=== PATIENT | male | born 1945 | race Caucasian/White ===

== ENCOUNTER → 2023-04-17 10:36 | Outpatient (REF) | payer MEDICARE, SELFPAY ==
[2023-04-17 11:34] LABS: % Basophils 1.1 % (0-2); % Eosinophils 4.9 % (0-6); % Immature Granulocytes 0.4 % (0-0.5); % Lymphocytes 27.2 % (20.5-51.1); % Monocytes 8.6 % (1.7-9.3); % Neutrophils 57.8 % (42.2-75.2); Absolute Basophils 0.1 10^3/uL (0-0.2); Absolute Eosinophils 0.4 10^3/uL (0-0.7); Absolute Monocytes 0.6 10^3/uL (0.1-0.6); Absolute Neutrophils 4.2 10^3/uL (1.4-6.5); Hematocrit 42.7 % (39.0-52.0); Hemoglobin 14.9 g/dL (13.0-18.0); Mean Corp Hgb Conc. 34.9 g/dL (33.0-37.0); Mean Corpuscular Hgb 34.1 pg (27.0-31.0); Mean Corpuscular Volume 97.7 fL (80.0-94.0); Mean Platelet Volume 9.5 fL (7.4-10.4); Nucleated Red Blood Cells % 0 % (-); Platelet Count 179 10^3/uL (130-400); Red Blood Cell Count 4.37 10^6/uL (4.70-6.10); Red Cell Dist. Width 12.8 % (11.5-14.5); White Blood Cell Count 7.3 10^3/uL (4.8-10.8)
[2023-04-17 12:01] LABS: ALT (SGPT) 10 U/L (0-50); AST (SGOT) 22 U/L (17-59); Alkaline Phosphatase 43 U/L (38-126); Blood Urea Nitrogen 17 mg/dl (9-20); Carbon Dioxide 28 mmol/L (22-30); Chloride 105 mmol/L (98-107); Glucose 99 mg/dl (70-99); HDL Cholesterol 48 mg/dl; LDL Cholesterol, Calculated 68 mg/dl; Potassium 4.2 mmol/L (3.5-5.1); Sodium 137 mmol/L (135-145); Total Bilirubin 0.9 mg/dl (0.2-1.3); Total Cholesterol 131 mg/dl (50-199); Total Protein 6.3 g/dl (6.3-8.2); Triglyceride 77 mg/dl (10-149); Very Low Density Lipoprotein 15 mg/dl (0-30); eGFR > 60.00
[2023-04-17 12:36] LABS: TSH 2.15 uIU/ml (0.47-4.68)
== END ==
LOC: REG 10:36
PROVIDERS: ATTENDING PHYSICIAN Internal Medicine
DX: I10 Essential (primary) hypertension (principal); N40.1 Benign prostatic hyperplasia with lower urinary tract symptoms; I44.7 Left bundle-branch block, unspecified; Z85.038 Personal history of other malignant neoplasm of large intestine; Z86.12 Personal history of poliomyelitis; I87.2 Venous insufficiency (chronic) (peripheral); G62.9 Polyneuropathy, unspecified; K58.0 Irritable bowel syndrome with diarrhea; Z00.01 Encounter for general adult medical examination with abnormal findings
CPT/HCPCS: 36415; 80053; 80061; 84443; 85025

== ENCOUNTER → 2023-04-30 14:05 | Outpatient (REF) | payer MEDICARE, SELFPAY ==
[2023-04-30 16:11] LABS: Urine Albumin Trace (Neg - Trace); Urine Bilirubin Negative (Negative); Urine Character Clear (Clear); Urine Color Amber; Urine Glucose Negative (Negative); Urine Ketone Trace (Negative); Urine Leukocyte Trace (Negative); Urine Nitrite Negative (Negative); Urine Occult Blood 4+ (Negative); Urine Urobilinogen Negative (Neg - 1+)
[2023-04-30 16:36] LABS: Urine Mucus Few
[2023-04-30 16:37] LABS: Urine Calcium Oxalate Crystals Present; Urine Red Blood Cell 90-100 /HPF (0-2); Urine Squamous Cell 0-2 /LPF (Few)
[2023-04-30 16:38] LABS: Urine Bacteria Few (Negative)
== END ==
LOC: REG 14:05
PROVIDERS: ATTENDING PHYSICIAN Specialist; FAMILY PHYSICIAN Internal Medicine
DX: N39.0 Urinary tract infection, site not specified (principal)
CPT/HCPCS: 81003; 81015; 87086

== ENCOUNTER → 2023-06-16 16:15 | Outpatient (REF) | payer MEDICARE, SELFPAY | LOC: RAD 16:15 | PROVIDERS: ATTENDING PHYSICIAN Student in an Organized Health Care Education/Training Program | DX: R22.2 Localized swelling, mass and lump, trunk (principal) | CPT/HCPCS: 71111 ==

== ENCOUNTER 2023-09-09 06:16 | Day surgery (SDC) | payer MEDICARE, SELFPAY ==
[2023-09-03 09:09] VITALS: BMI 27.4
[2023-09-03 10:12] LABS: Urine Albumin Negative (Neg - Trace); Urine Bilirubin Negative (Negative); Urine Character Clear (Clear); Urine Color Yellow; Urine Glucose Negative (Negative); Urine Ketone Negative (Negative); Urine Leukocyte 1+ (Negative); Urine Nitrite Negative (Negative); Urine Occult Blood 1+ (Negative); Urine Specific Gravity 1.015 (<1.030); Urine Urobilinogen Negative (Neg - 1+)
[2023-09-03 10:17] LABS: Hematocrit 45.7 % (39.0-52.0); Hemoglobin 15.5 g/dL (13.0-18.0); Mean Corp Hgb Conc. 33.9 g/dL (33.0-37.0); Mean Corpuscular Hgb 33.3 pg (27.0-31.0); Mean Corpuscular Volume 98.3 fL (80.0-94.0); Mean Platelet Volume 9.7 fL (7.4-10.4); Platelet Count 175 10^3/uL (130-400); Red Blood Cell Count 4.65 10^6/uL (4.70-6.10); Red Cell Dist. Width 12.9 % (11.5-14.5); White Blood Cell Count 9.1 10^3/uL (4.8-10.8)
[2023-09-03 10:21] LABS: APTT 31.1 Sec (23.4-35.0); INR 1.11; PT 14.3 Sec (11.4-14.6)
[2023-09-03 10:44] LABS: Blood Urea Nitrogen 18 mg/dl (9-20); Calcium 9.8 mg/dl (8.4-10.2); Carbon Dioxide 22 mmol/L (22-30); Chloride 105 mmol/L (98-107); Estimated Creatinine Clearance 80 ml/min; Glucose 93 mg/dl (70-99); Potassium 4.4 mmol/L (3.5-5.1); Sodium 137 mmol/L (135-145); eGFR > 60.00
[2023-09-03 10:52] LABS: Urine Squamous Cell 0-2 /LPF (Few)
[2023-09-03 10:54] LABS: Urine Red Blood Cell 0-2 /HPF (0-2); Urine Urothelial Cell 0-2 /LPF (FEW)
--- NOTE | 2023-09-07 12:10 | CM ---
Patient is scheduled for a TURP on 09/09/23. Spoke with patient prior to surgery via telephone to complete case management assessment and assess for discharge planning needs. Patient reports that he lives alone in a one story home. There is one step
to enter. He currently functions independently. He has no DME and has never had VN services. He has a prescription plan and uses [facility] in [place].
PCP is Amadeo Hensley
Discussed discharge plans. Patient plans to return home at discharge. He states that he will not have anyone staying with him when he goes home. He has no discharge planning concerns at this time. Discussed possible need for VN services and he
declined, stating he doesn't feel he will need these services.
[2023-09-09] VITALS (15 sets, daily range): BP systolic 118–155; BP diastolic 64–90; BMI 26.5; BMI 27.4
[2023-09-09] MEDS: NORMOSOL-R 1000 IV (09:02)
[2023-09-09] MEDS: COREG 6.25 MG PO (14:34)
--- NOTE | 2023-09-09 15:43 | PTCARENOTE ---
1520: Patient arrived to 2S post TURP and cystolitholipaxy. Full head to toe assessment completed. CBI running with a light red output, free of clots. Call wallace within reach and bed in lowest position.
[2023-09-09] MEDS: NON-FORMULARY ITEM 1 DROP OPHTH (21:16)
[2023-09-09] MEDS: PRED FORTE 1% EYE DROPS 1 DROP OPHTH (21:17)
[2023-09-09] MEDS: BENADRYL 25 MG PO (22:00)
[2023-09-09] MEDS: PROSCAR 5 MG PO (22:00)
[2023-09-09] MEDS: DESYREL 50 MG PO (22:00)
[2023-09-10] MEDS: COREG 6.25 MG PO ×2 (02:37→16:23)
[2023-09-10 03:50] VITALS: BP 120/64
[2023-09-10 07:10] VITALS: BP 137/72
[2023-09-10] MEDS: FLOMAX 0.4 MG PO (09:24)
[2023-09-10] MEDS: ZESTRIL 20 MG PO (09:24)
[2023-09-10] MEDS: PRED FORTE 1% EYE DROPS 1 DROP OPHTH ×3 (09:25→22:04)
[2023-09-10] MEDS: NON-FORMULARY ITEM OPHTH ×2 (09:26→16:23)
--- NOTE | 2023-09-10 10:31 | W.PN.UPDATE ---
Update Note
Progress Note Update
pt s/p TURP
saw pt this am- moderate rate cbi- urine clear
clamped cbi- pt uoob/ambulating- urine became bloody with some clots
have restarted cbi- continue today- and try repeat clamp trial- TOV tomorrow
[2023-09-10 11:42] VITALS: BP 132/68
[2023-09-10 15:36] VITALS: BP 136/63
[2023-09-10] MEDS: DESYREL 50 MG PO (22:04)
[2023-09-10] MEDS: PROSCAR 5 MG PO (22:04)
[2023-09-10] MEDS: BENADRYL 25 MG PO (22:04)
[2023-09-10] MEDS: NON-FORMULARY ITEM 1 DROP OPHTH (22:12)
[2023-09-10 23:05] VITALS: BP 128/64
--- NOTE | 2023-09-11 06:36 | W.PN.UPDATE ---
Update Note
Progress Note Update
pt stable
urine clear/blair with cbi off since midnight
palacio removed for TOV- likely discharge home later today
[2023-09-11 07:20] VITALS: BP 144/88
[2023-09-11] MEDS: FLOMAX 0.4 MG PO (08:11)
[2023-09-11] MEDS: ZESTRIL 20 MG PO (08:12)
[2023-09-11] MEDS: PRED FORTE 1% EYE DROPS 1 DROP OPHTH (08:13)
[2023-09-11] MEDS: NON-FORMULARY ITEM 1 DROP OPHTH (08:46)
[2023-09-11] MEDS: COREG 6.25 MG PO (10:28)
[2023-09-11 15:00] VITALS: BP 137/78
--- NOTE | 2023-09-11 15:57 | VNURNOTE ---
Home Health Liaison called to speak with patient at 1345 to discuss [facility] nurse visits, schedule and homebound status. No answer, message left for patient to contact Liaison if he would want or need [facility] at discharge.
Notes indicate that patient has had palacio d/c and patient does not need [facility].
No referral made.
[2023-09-13 10:56] LABS: Stone Analysis Mass 957 mg
== END 2023-09-11 15:10 | disposition home or self-care (01) ==
LOC: SDS 06:16
PROVIDERS: ATTENDING PHYSICIAN Specialist; FAMILY PHYSICIAN Internal Medicine
DX: N40.1 Benign prostatic hyperplasia with lower urinary tract symptoms (principal); N32.0 Bladder-neck obstruction
CPT/HCPCS: 52601; 52317; 88305; 36415; 80048; 81003; 81015; 82365; 85027; 85610; 85730; 88344; 93005

== ENCOUNTER 2023-12-11 18:47 | Emergency (ER) | payer MEDICARE, SELFPAY ==
[2023-12-11 18:58] VITALS: BP 169/88
--- NOTE | 2023-12-11 20:58 | ED.GENMED ---
History of Present Illness
General
Chief Complaint: Breathing Problem
Source: patient
Time Seen by Provider: 12/11/23 20:38
History of Present Illness
History of Present Illness:
78-year-old male presents to the emergency room complaining of pain in the right upper abdomen. Pain began 2 days ago. It is persistent. Made worse with deep breaths. No associated nausea vomiting. Patient does not feel short of breath.
Patient had similar episodes of pain a couple times throughout his life. He called his primary care doctor who told him to come to the emergency room for evaluation to rule out a lung problem. Patient denies any fever, chills or diarrhea. He
cannot recall any particular activity which started the pain.
Past History
Past History
ED Past Medical History: Arrthythmia (PVC's), HTN, Other (Large prostate) and Other (Hx colon cancer)
ED Past Surgical History: Orthopedic and Other (Colon resection 2007)
Social History
Tobacco: Non-smoker
Personal: Single
Living: alone
Phy Exam
Physical Exam
Physical Exam:
General: Awake, Alert, Oriented X3. No acute distress.
Vitals: unremarkable
Head: Atraumatic
Eyes: Pupils equal, EOMI
Throat: Airway intact, no exudates
Neck: Trachea midline
Lungs: Clear and equal b/l
Heart: Regular rate, no murmurs
Abd: Soft, mild to moderate right upper quadrant tenderness to palpation, No pulsatile mass
Neuro: Nonfocal
Skin: Warm, dry, no rash
Extremities: pulses equal b/l, no edema
Scores
Heart Failure Risk
Heart Failure Risk Score: Not Applicable
Course
Orders/Labs/Results
Orders:
Orders
12/11/23 18:49
EKG [Electrocardiogram (*1)] Urgent
Reason for Study: Shortness of Breath
EKG- Treatment ONCE
12/11/23 19:00
Chest [CR Chest - 2 Views ] Urgent
Comment:
Reason For Exam: R sided chest discomfort
12/11/23 20:57
Ketorolac [Toradol] 15 mg IV NOW STA
12/11/23 20:58
US Abdomen Complete/Upper Urgent
Comment:
Reason For Exam: ruq pain
12/11/23 22:41
Complete Blood Count/With Diff Urgent
Comprehensive Metabolic Panel Urgent
Lipase Urgent
Abnormal Lab Results
12/11/23
22:41
WBC 11.0 H 10^3/uL
(4.8-10.8)
RBC 4.44 L 10^6/uL
(4.70-6.10)
MCH 34.0 H pg
(27.0-31.0)
Abs Immat Gran (auto) 0.1 H 10^3/uL
(0-0.05)
Absolute Neuts (auto) 7.8 H 10^3/uL
(1.4-6.5)
Absolute Monos (auto) 1.1 H 10^3/uL
(0.1-0.6)
Immature Gran % 0.6 H %
(0-0.5)
Lymphocytes % 16.8 L %
(20.5-51.1)
Monocytes % 9.9 H %
(1.7-9.3)
Glucose 103 H mg/dl
(70-99)
Total Bilirubin 1.6 H mg/dl
(0.2-1.3)
12/11/23 22:41
12/11/23 22:41
Vital Signs
Initial and Last Documented VS:
Initial Vital Signs
Temp Pulse Resp BP Pulse Ox
98.1 F 81 18 169/88 96
12/11/23 18:58 12/11/23 18:58 12/11/23 18:58 12/11/23 18:58 12/11/23 18:58
Last Documented Vital Signs
Temp Pulse Resp BP Pulse Ox
98.1 F 80 24 156/86 93
12/11/23 18:58 12/11/23 23:45 12/11/23 23:45 12/11/23 23:30 12/11/23 23:45
MDM/Problems Addressed
Differential Diagnosis Includes:
Pancreatitis, cholecystitis, GERD, peptic ulcer disease
MDM/Problems Addressed:
Patient presents with right upper quadrant and epigastric abdominal pain. He was concerned that he had a collapsed lung however on exam his pain is clearly abdominal. Chest x-ray shows no acute abnormality. Labs show an elevated white count at 11
which is barely elevated. He has normal chemistries save a bilirubin of 1.6. His ultrasound shows multiple gallstones. There is no gallbladder wall thickening or pericholecystic fluid. EKG shows no ischemic changes. My #1 suspicion is that the
patient is having biliary colic due to his gallstones. He is feeling better and therefore we discussed the option of hospitalization versus discharge home and follow-up with surgery as an outpatient. Patient would prefer outpatient follow-up. He
understands return to the pain returns, he develops a fever or feels he is getting worse in any way.
*Radiology
Radiology exam reviewed: radiology read reviewed
*Pulse Oximetry
Patient hypoxic: no
*EKG
Interpreted by ED Provider?: Yes
Interpretation: normal
Heart Rate: 76
Rate: normal
Rhythm: sinus
QRS Pattern: left bundle branch block
Ischemia: no ischemia
*Audio Technician Interpretation
Rate: normal
Heart Rate: 76
Rhythm: sinus
*Critical Care Note
Total Time (30-74mins, 75-104mins- exclusive of procedures): Not Applicable
Data Reviewed
Review of Other/Old Records Reveals: Records
Patient Management
Escalation/DeEscalation of care consider admission/obs:
Considered hospitalization given the patient is feeling better he would prefer to be discharged home and have outpatient follow-up
ED Attending Note
-
Portions of this chart may have been created with voice recognition software.� Occasional wrong word or��sound alike� substitutions may have occurred due to the inherent limitations of voice recognition software.
Discharge Plan
Departure
Patient Disposition: Home (Routine Discharge)
Date of Disposition: 12/11/23
Time of Disposition: 23:31
Patient with high blood pressure during this ER visit?: Yes
Condition: Good
Discharge Problem:
Abdominal pain, Gall stones
Instructions: Gallstones ED, BLOOD PRESSURE
Prescriptions:
No Action
acetaminophen 650 mg Tablet Extended Release
1,300 mg PO PRN PRN (Reason: PAIN) Qty: 0
carvedilol 6.25 MG tablet
6.25 mg PO Q12H
trazodone 50 MG tablet
50 mg PO HS
tamsulosin 0.4 MG capsule
0.4 mg PO DAILY Qty: 30 0RF
loperamide 2 mg Tablet
2 mg PO PRN PRN (Reason: diarrhea)
acetaminophen 500 mg Tablet
500 mg PO Q6H PRN (Reason: PAIN)
diphenhydramine HCl 25 mg Tablet
25 mg PO HS
finasteride 5 mg Tablet
5 mg PO HS
gatifloxacin 0.5 % Drops
1 drp OPHTHALMIC (EYE) TID
prednisolone acetate (PF) 1 % Drops,Suspension
1 drp OPHTHALMIC (EYE) TID
lisinopril 20 mg Tablet
20 mg PO DAILY
phenazopyridine 200 mg tablet
200 mg PO TID PRN (Reason: bladder irritation) Qty: 30 2RF
Referrals:
Ritchie Campbell MD [Active] -
mAadeo Hensley MD [Family Provider] -
Interventions
Interventions:
*Risk Screen - Suicide Last Done: 12/11/23 22:48
*General Assessment Last Done: 12/11/23 22:48
*Neglect/Abuse Screening Last Done: 12/11/23 22:48
ED- Fall Risk Assessment Last Done: 12/11/23 22:48
*ED COVID-19 Vaccine History Last Done: 12/11/23 22:48
*Nursing Disposition Last Done: 12/12/23 00:04
ED- Cardiac Assessment Last Done: 12/11/23 22:48
ED- Pulmonary Assessment Last Done: 12/11/23 22:48
Discharge Date and Time
Discharge Date/Time: 12/12/23 00:04
Print Language: LAO
[2023-12-11 22:35] VITALS: BP 143/81
[2023-12-11] MEDS: TORADOL 15 MG IV (22:44)
[2023-12-11 22:47] LABS: % Basophils 0.5 % (0-2); % Eosinophils 1.4 % (0-6); % Immature Granulocytes 0.6 % (0-0.5); % Lymphocytes 16.8 % (20.5-51.1); % Monocytes 9.9 % (1.7-9.3); % Neutrophils 70.8 % (42.2-75.2); Absolute Basophils 0.1 10^3/uL (0-0.2); Absolute Eosinophils 0.2 10^3/uL (0-0.7); Absolute Immature Granulocytes 0.1 10^3/uL (0-0.05); Absolute Lymphocytes 1.9 10^3/uL (1.2-3.4); Absolute Monocytes 1.1 10^3/uL (0.1-0.6); Absolute Neutrophils 7.8 10^3/uL (1.4-6.5); Hematocrit 41.4 % (39.0-52.0); Hemoglobin 15.1 g/dL (13.0-18.0); Mean Corp Hgb Conc. 36.5 g/dL (33.0-37.0); Mean Corpuscular Volume 93.2 fL (80.0-94.0); Mean Platelet Volume 9.3 fL (7.4-10.4); Nucleated Red Blood Cells % 0 % (-); Platelet Count 171 10^3/uL (130-400); Red Blood Cell Count 4.44 10^6/uL (4.70-6.10); Red Cell Dist. Width 12.4 % (11.5-14.5)
[2023-12-11 22:48] VITALS: BMI 27.4
[2023-12-11 23:00] VITALS: BP 147/88
[2023-12-11 23:12] LABS: ALT (SGPT) 14 U/L (0-50); AST (SGOT) 20 U/L (17-59); Albumin 4.1 g/dl (3.5-5.0); Alkaline Phosphatase 44 U/L (38-126); Blood Urea Nitrogen 16 mg/dl (9-20); Calcium 9.3 mg/dl (8.4-10.2); Carbon Dioxide 27 mmol/L (22-30); Chloride 102 mmol/L (98-107); Estimated Creatinine Clearance 92 ml/min; Glucose 103 mg/dl (70-99); Lipase 37 U/L (23-300); Sodium 138 mmol/L (135-145); Total Bilirubin 1.6 mg/dl (0.2-1.3); Total Protein 6.6 g/dl (6.3-8.2); eGFR > 60.00
[2023-12-11 23:30] VITALS: BP 156/86
== END 2023-12-12 00:04 | disposition home or self-care (01) ==
LOC: EMR 18:47
PROVIDERS: EMERGENCY PHYSICIAN Emergency Medicine; FAMILY PHYSICIAN Internal Medicine
DX: K80.20 Calculus of gallbladder without cholecystitis without obstruction (principal); R10.11 Right upper quadrant pain; R10.13 Epigastric pain; R07.89 Other chest pain; I44.7 Left bundle-branch block, unspecified; I10 Essential (primary) hypertension; Z85.038 Personal history of other malignant neoplasm of large intestine; Z98.0 Intestinal bypass and anastomosis status; Z88.8 Allergy status to other drugs, medicaments and biological substances
CPT/HCPCS: 99285; 96374; 71046; 76700; 80053; 83690; 85025; 93005

== ENCOUNTER 2024-01-18 06:18 | Day surgery (SDC) | payer MEDICARE, SELFPAY ==
[2024-01-18] VITALS (11 sets, daily range): BP systolic 138–162; BP diastolic 70–98; BMI 26.7
[2024-01-18] MEDS: TYLENOL 1000 MG PO (10:34)
[2024-01-18] MEDS: IC GREEN 2.5 MG IV (10:34)
--- NOTE | 2024-01-18 12:51 | W.IMMPOSTOP ---
Surgical Immed Post Op Note
-
Primary Surgeon: Kanu
Assisting: Colby INTEGRATED MARKETING SPECIALIST; Kulwinder LAUA
Pre-op Diagnosis: Biliary colic
Post-op Diagnosis: Chronic calculous cholecystitis
Procedure Performed: Robot assisted laparoscopic cholecystectomy
Anesthesia Type: GETA
Specimen / Cultures: Gallbladder
Estimated Blood Loss: 5cc
Complications: None immediate
Operative Findings: Intrahepatic gallbladder with thickened wall and dense omental adhesions
--- NOTE | 2024-01-18 12:52 | OR.RPT ---
Operative Report
Operative Report
Primary Surgeon: Kanu
Assisting: Colby STRINGED INSTRUMENT ASSEMBLER; Kulwinder STRINGED INSTRUMENT ASSEMBLER
Pre-op Diagnosis: Biliary colic
Post-op Diagnosis: Chronic calculous cholecystitis
Procedure Performed: Robot assisted laparoscopic cholecystectomy
Anesthesia Type: GETA
Specimen / Cultures: Gallbladder
Estimated Blood Loss: 5cc
Complications: None immediate
Operative Findings: Intrahepatic gallbladder with thickened wall and dense omental adhesions
Date of Surgery:� 01/18/24
Indications: This 78M developed right upper quadrant pain. Work-up showed gallstones, unremarkable liver enzymes and no ductal dilation. Laparoscopic cholecystectomy with robotic assist was elected.
Description of procedure: The patient was placed on the operating table in the supine position. General anesthesia was induced. A time-out was completed verifying correct patient, procedure, site, positioning, and special equipment prior to
beginning this procedure. An orogastric tube was placed. The abdomen was prepped and draped in the usual sterile fashion. A stab incision was made in left upper quadrant and the Veress needle was inserted. Proper position was confirmed by aspiration
and saline meniscus test. The abdomen was insufflated with carbon dioxide to a pressure of 12mmHg. The patient tolerated insufflation well.
A 8mm trocar was then inserted above the umbilicus. The laparoscope was inserted and the abdomen inspected. No injuries from initial trocar placement or Veress needle insertion were noted. Additional 8mm trocars were then inserted in the following
locations: two in the right lower quadrant and to the left of the umbilicus and just above. The abdomen was inspected and no abnormalities were found. The table was placed in the reverse Trendelenburg position with the right side up. The dome of the
gallbladder was grasped with an atraumatic grasper and retracted over the dome of the liver. Dense omental adhesions were carefully teased down with gently blunt sweeps and judicious hook cautery. The infundibulum was then grasped with an atraumatic
grasper and retracted toward the right lower quadrant. This maneuver exposed Calot�s triangle. The peritoneum overlying the gallbladder infundibulum was then incised and the cystic duct and cystic artery identified and circumferentially dissected so
that a clear view of the liver was achieved through a window between the cystic duct an cystic artery. At this time, the only two structures going into the gallbladder were the cystic artery and cystic duct. The common dict was identified with ICG
and protected.
The cystic duct was then doubly clipped and divided. The cystic artery was controlled with bipolar and divided. The gallbladder was then dissected from its peritoneal attachments by electrocautery. The gallbladder was removed using an endoscopic
retrieval bag placed through the umbilical port. The gallbladder was passed off the table as a specimen. The gallbladder fossa was closely inspected. There was no evidence of bleeding from the gallbladder fossa or cystic artery or leakage of the
bile from the cystic duct stump. The umbilical trocar site was closed at the fascial level with 2-0 PDS. Secondary trocars were removed under direct vision and noted to be hemostatic. The abdomen was allowed to collapse. The skin was closed with
subcuticular sutures of 4-0 monocryl and topical skin adhesive. The orogastric tube was removed.
The patient tolerated the procedure well and was taken to the postanesthesia care unit in stable condition.
[2024-01-18] MEDS: DEMEROL 12.5 MG IV ×2 (13:17→13:34)
[2024-01-18] MEDS: ZOFRAN 4 MG IV (13:22)
--- NOTE | 2024-01-18 14:22 | SUR.PHASEI ---
comfortable after demerol and zofran, sitting up at 45 degrees on stretcher, taking ice chips po. vss, discharge to [facility]
== END 2024-01-18 17:04 | disposition home or self-care (01) ==
LOC: SDS 06:18
PROVIDERS: ATTENDING PHYSICIAN Surgery; FAMILY PHYSICIAN Internal Medicine
DX: K80.10 Calculus of gallbladder with chronic cholecystitis without obstruction (principal); K80.60 Calculus of gallbladder and bile duct with cholecystitis, unspecified, without obstruction
CPT/HCPCS: 47562; 88304

== ENCOUNTER 2024-01-23 15:10 | Emergency (ER) | payer MEDICARE, SELFPAY ==
[2024-01-23 15:15] VITALS: BP 147/87
[2024-01-23 16:27] LABS: % Basophils 0.6 % (0-2); % Eosinophils 3.6 % (0-6); % Immature Granulocytes 1.2 % (0-0.5); % Lymphocytes 15.7 % (20.5-51.1); % Monocytes 11.1 % (1.7-9.3); % Neutrophils 67.8 % (42.2-75.2); Absolute Basophils 0.1 10^3/uL (0-0.2); Absolute Eosinophils 0.3 10^3/uL (0-0.7); Absolute Immature Granulocytes 0.1 10^3/uL (0-0.05); Absolute Lymphocytes 1.2 10^3/uL (1.2-3.4); Absolute Monocytes 0.9 10^3/uL (0.1-0.6); Absolute Neutrophils 5.2 10^3/uL (1.4-6.5); Hematocrit 42.1 % (39.0-52.0); Hemoglobin 14.5 g/dL (13.0-18.0); Mean Corp Hgb Conc. 34.4 g/dL (33.0-37.0); Mean Corpuscular Hgb 34.2 pg (27.0-31.0); Mean Corpuscular Volume 99.3 fL (80.0-94.0); Mean Platelet Volume 9.1 fL (7.4-10.4); Nucleated Red Blood Cells % 0 % (-); Platelet Count 148 10^3/uL (130-400); Red Blood Cell Count 4.24 10^6/uL (4.70-6.10); Red Cell Dist. Width 12.8 % (11.5-14.5); White Blood Cell Count 7.7 10^3/uL (4.8-10.8)
[2024-01-23 16:41] LABS: ALT (SGPT) 16 U/L (0-50); AST (SGOT) 22 U/L (17-59); Alkaline Phosphatase 39 U/L (38-126); Blood Urea Nitrogen 26 mg/dl (9-20); Calcium 9.3 mg/dl (8.4-10.2); Carbon Dioxide 26 mmol/L (22-30); Chloride 102 mmol/L (98-107); Glucose 108 mg/dl (70-99); Potassium 4.3 mmol/L (3.5-5.1); Sodium 137 mmol/L (135-145); Total Protein 6.5 g/dl (6.3-8.2); eGFR > 60.00
--- NOTE | 2024-01-23 16:53 | ED.GENMED ---
History of Present Illness
General
Chief Complaint: Post Operative Problem(s)
Time Seen by Provider: 01/23/24 15:47
History of Present Illness
History of Present Illness:
78-year-old male presents to the emergency department for evaluation of abdominal discomfort and lower abdominal ecchymosis. He is 5 days status post laparoscopic cholecystectomy performed at this hospital by Dr. Bobby. He denies any fevers or
vomiting. Appetite and bowel movements have been normal. Concerned that he is developed a large amount of ecchymosis to the inferior right lower quadrant as well as ecchymosis to several of the trocar sites
Past History
Past History
ED Past Medical History: Arrthythmia (PVC's), HTN, Other (Large prostate) and Other (Hx colon cancer)
ED Past Surgical History: Orthopedic and Other (Colon resection 2007)
Social History
Tobacco: Non-smoker
Personal: Single
Living: alone
Review of Systems
Review of Systems
Allergies reviewed?: Yes
All Other Systems: ROS reviewed and negative except as documented in HPI and ROS
Phy Exam
Physical Exam
Physical Exam:
GEN: Well appearing, NAD, WDWN
HEENT: Oral mucosa moist, no scleral icterus
Cardiac: Regular rate and rhythm, no murmurs
Lung: No respiratory distress, no tachypnea
Abdomen: Soft, grossly nontender with exception of mild discomfort to the right lower quadrant associated with a large amount of ecchymosis, no firmness or palpable hematoma
MSK: No gross deformity or injuries
Skin: Good color, no pallor or jaundice, no rashes
Neuro: AO x3, moves all extremities freely
Psych: Calm, cooperative
Course
Orders/Labs/Results
Orders:
Orders
01/23/24 16:21
Complete Blood Count/With Diff Urgent
Comprehensive Metabolic Panel Urgent
Abnormal Lab Results
01/23/24
16:21
RBC 4.24 L 10^6/uL
(4.70-6.10)
MCV 99.3 H fL
(80.0-94.0)
MCH 34.2 H pg
(27.0-31.0)
Abs Immat Gran (auto) 0.1 H 10^3/uL
(0-0.05)
Absolute Monos (auto) 0.9 H 10^3/uL
(0.1-0.6)
Immature Gran % 1.2 H %
(0-0.5)
Lymphocytes % 15.7 L %
(20.5-51.1)
Monocytes % 11.1 H %
(1.7-9.3)
BUN 26 H mg/dl
(9-20)
Glucose 108 H mg/dl
(70-99)
Total Bilirubin 2.0 H mg/dl
(0.2-1.3)
01/23/24 16:21
01/23/24 16:21
Vital Signs
Initial and Last Documented VS:
Initial Vital Signs
Temp Pulse Resp Pulse Ox
98.6 F 67 18 98
01/23/24 15:13 01/23/24 15:13 01/23/24 15:13 01/23/24 15:13
Last Documented Vital Signs
Temp Pulse Resp BP Pulse Ox
98.6 F 63 17 147/87 96
01/23/24 15:13 01/23/24 16:45 01/23/24 16:45 01/23/24 15:15 01/23/24 16:45
MDM/Problems Addressed
MDM/Problems Addressed:
I suspect that this is just greater than anticipated postoperative ecchymosis, hemoglobin stable thus do not suspect any hemorrhagic complications. Clinically looks well. Do not see any indication for CT at this time
*Critical Care Note
Total Time (30-74mins, 75-104mins- exclusive of procedures): Not Applicable
ED Attending Note
-
Portions of this chart may have been created with voice recognition software.� Occasional wrong word or��sound alike� substitutions may have occurred due to the inherent limitations of voice recognition software.
Discharge Plan
Departure
Patient Disposition: Home (Routine Discharge)
Date of Disposition: 01/23/24
Time of Disposition: 16:53
Patient with high blood pressure during this ER visit?: No
Discharge Problem:
Postoperative ecchymosis
Instructions: Postoperative Pain (DC)
Prescriptions:
No Action
acetaminophen 650 mg Tablet Extended Release
1,300 mg PO PRN PRN (Reason: PAIN) Qty: 0
carvedilol 6.25 MG tablet
6.25 mg PO Q12H
trazodone 50 MG tablet
50 mg PO HS
loperamide 2 mg Tablet
2 mg PO PRN PRN (Reason: diarrhea)
diphenhydramine HCl 25 mg Tablet
50 mg PO HS
lisinopril 20 mg Tablet
20 mg PO HS
Dextromethorphan Cough
1 unit PO PRN PRN (Reason: cough)
oxycodone 5 mg tablet
5 - 10 mg PO Q4HPRN PRN (Reason: moderate to severe pain) Qty: 16 0RF
Referrals:
Amadeo Hensley MD [Family Provider] -
Activity Restrictions/Additional Instructions:
I am not worried that the bruising is negative of intra-abdominal bleeding given that your hemoglobin counts are normal. Follow-up with your surgery team by phone call this week
Interventions
Interventions:
*Risk Screen - Suicide Last Done: 01/23/24 15:15
*General Assessment Last Done: 01/23/24 15:15
*Neglect/Abuse Screening Last Done: 01/23/24 15:15
ED- Fall Risk Assessment Last Done: 01/23/24 16:51
ED-Skin Assessment Last Done: 01/23/24 16:51
Discharge Date and Time
Print Language: SWISS
== END 2024-01-23 17:20 | disposition home or self-care (01) ==
LOC: EMR 15:10
PROVIDERS: Physician Assistant; EMERGENCY PHYSICIAN Emergency Medicine; FAMILY PHYSICIAN Internal Medicine
DX: L76.32 Postprocedural hematoma of skin and subcutaneous tissue following other procedure (principal); I10 Essential (primary) hypertension; I49.3 Ventricular premature depolarization; Z85.038 Personal history of other malignant neoplasm of large intestine; Z90.49 Acquired absence of other specified parts of digestive tract
CPT/HCPCS: 99283; 80053; 85025

== ENCOUNTER 2024-01-25 14:28 | Emergency (ER) | payer MEDICARE, SELFPAY ==
[2024-01-25 14:34] VITALS: BP 135/92
[2024-01-25 16:46] LABS: % Basophils 0.6 % (0-2); % Eosinophils 3.9 % (0-6); % Lymphocytes 17.6 % (20.5-51.1); % Monocytes 11.7 % (1.7-9.3); % Neutrophils 65.2 % (42.2-75.2); Absolute Basophils 0.1 10^3/uL (0-0.2); Absolute Eosinophils 0.3 10^3/uL (0-0.7); Absolute Immature Granulocytes 0.1 10^3/uL (0-0.05); Absolute Lymphocytes 1.4 10^3/uL (1.2-3.4); Absolute Neutrophils 5.3 10^3/uL (1.4-6.5); Hematocrit 41.4 % (39.0-52.0); Hemoglobin 14.1 g/dL (13.0-18.0); Mean Corp Hgb Conc. 34.1 g/dL (33.0-37.0); Mean Corpuscular Hgb 33.9 pg (27.0-31.0); Mean Corpuscular Volume 99.5 fL (80.0-94.0); Mean Platelet Volume 9.4 fL (7.4-10.4); Nucleated Red Blood Cells % 0 % (-); Platelet Count 157 10^3/uL (130-400); Red Blood Cell Count 4.16 10^6/uL (4.70-6.10); White Blood Cell Count 8.1 10^3/uL (4.8-10.8)
[2024-01-25 16:56] LABS: ALT (SGPT) 14 U/L (0-50); AST (SGOT) 24 U/L (17-59); Albumin 3.9 g/dl (3.5-5.0); Alkaline Phosphatase 38 U/L (38-126); Blood Urea Nitrogen 24 mg/dl (9-20); Calcium 9.3 mg/dl (8.4-10.2); Carbon Dioxide 31 mmol/L (22-30); Chloride 101 mmol/L (98-107); Glucose 107 mg/dl (70-99); Potassium 4.4 mmol/L (3.5-5.1); Sodium 137 mmol/L (135-145); Total Bilirubin 2.4 mg/dl (0.2-1.3); Total Protein 6.3 g/dl (6.3-8.2); eGFR > 60.00
[2024-01-25 19:37] VITALS: BP 143/81
[2024-01-25] MEDS: AUGMENTIN 875 MG/125 MG 1 TABLET PO (19:49)
[2024-01-25] MEDS: ELIQUIS 10 MG PO (19:49)
[2024-01-25] MEDS: ZITHROMAX 500 MG PO (19:49)
--- NOTE | 2024-01-25 23:11 | ED.GENMED ---
History of Present Illness
General
Chief Complaint: DVT/Possible Blood Clot
Source: patient
Exam Limitations: none
Time Seen by Provider: 01/25/24 15:41
Nursing documentation reviewed up to this point in time: agreed with
History of Present Illness
History of Present Illness:
Patient to ED with complaint of pain redness and swelling to his left forearm. S/p cholecystectomy 01/17. Had IV placed left volar forearm. Pain redness and swelling at site. Evaluated at and sent to ED to r/o DVT. Prior DVT >20yrs ago s/p
surgery. He is no longer on blood thinners. Also notes cough. States she developd cough after surgery. Denies SOB.
Past History
Past History
ED Past Medical History: Arrthythmia (PVC's), HTN, Other (Large prostate) and Other (Hx colon cancer)
ED Past Surgical History: Orthopedic and Other (Colon resection 2007)
Social History
Tobacco: Non-smoker
Personal: Single
Living: alone
Review of Systems
Review of Systems
Allergies reviewed?: Yes
All Other Systems: ROS reviewed and negative except as documented in HPI and ROS
Constitutional: Reports no symptoms
EENT: Reports no symptoms
Respiratory: Reports cough
Cardiac: Reports no symptoms
ABD/GI: Reports no symptoms
Musculoskeletal: Reports no symptoms
Skin: Reports other (erythema swelling pain LUE)
Neurological: Reports no symptoms
Psychiatric: Reports no symptoms
Phy Exam
General Physical Exam
General Presentation: well appearing and no apparent distress
General age: appears stated age
General Skin: warm and dry
General Habitus: normal
General Mental: alert
General Hydration: appears well hydrated
Cardiovascular Exam
Cardiovascular Exam: regular rate/rhythm and no edema
Pulmonary Exam
Pulmonary Exam: lungs clear and no respiratory distress
Cough: non productive cough
Gastrointestinal Exam
Gastrointestinal Exam: normal bowel sounds, non tender, soft, no organomegaly and non distended
Musculoskeletal Exam
Musculoskeletal Exam: full ROM and neuro vasc intact
Skin Exam
Skin Exam: other (Erythema swelling pain to left volar forearm extending to left upper arm. FUll ROM, Neurovascularly intact.)
Psychiatric Exam
Psychiatric Exam: normal mood/affect
Course
Orders/Labs/Results
Orders:
Orders
01/25/24 14:36
US Periph Venous UPPER Ext LT Urgent
Comment:
Reason For Exam: swelling and pain
01/25/24 16:19
CT Chest Pe Study Urgent
Comment:
Reason For Exam: cough, SOB, DVT LUE
01/25/24 16:31
Complete Blood Count/With Diff Urgent
Comprehensive Metabolic Panel Urgent
01/25/24 19:35
Amoxicillin 875 mg/Clav 125 mg [Augmentin 875 mg/125 mg] 1 tablet PO NOW STA
Apixaban [Eliquis] 10 mg PO NOW STA
Azithromycin [Zithromax] 500 mg PO NOW STA
Abnormal Lab Results
01/25/24
16:31
RBC 4.16 L 10^6/uL
(4.70-6.10)
MCV 99.5 H fL
(80.0-94.0)
MCH 33.9 H pg
(27.0-31.0)
Abs Immat Gran (auto) 0.1 H 10^3/uL
(0-0.05)
Absolute Monos (auto) 1.0 H 10^3/uL
(0.1-0.6)
Immature Gran % 1.0 H %
(0-0.5)
Lymphocytes % 17.6 L %
(20.5-51.1)
Monocytes % 11.7 H %
(1.7-9.3)
Carbon Dioxide 31 H mmol/L
(22-30)
BUN 24 H mg/dl
(9-20)
Glucose 107 H mg/dl
(70-99)
Total Bilirubin 2.4 H mg/dl
(0.2-1.3)
01/25/24 16:31
01/25/24 16:31
Vital Signs
Initial and Last Documented VS:
Initial Vital Signs
Temp Pulse Resp BP Pulse Ox
97.6 F 66 16 135/92 98
01/25/24 14:34 01/25/24 14:34 01/25/24 14:34 01/25/24 14:34 01/25/24 14:34
Last Documented Vital Signs
Temp Pulse Resp BP Pulse Ox
97.6 F 80 16 143/81 98
01/25/24 14:34 01/25/24 19:37 01/25/24 19:37 01/25/24 19:37 01/25/24 14:34
MDM/Problems Addressed
Differential Diagnosis Includes:
Patient to ED for eval of redness and swelling to LUE. He is 2weeks s/p cholecystectomy. Had IV left volar forearm and site of redness and swelling. US confirms DVT LU. He has a prior history of DVT approx 20 yrs ago s/p surgery. Placed on
eliquis in dept. Denies any CP but reports SOB and cough. Sent for PE study. Ct neg for PT but confirms RUL pnuemonia. Antibiotic started in dept. He remaina awake and alert, nontoxic appearing. VSS, pulse ox 98%RA. Will discharge home and he
rachel follow up with PCP in AM. Given instructions s/s to return to ED and he is agreeable to plan.
*Radiology
Radiology exam reviewed: radiology read reviewed
*Pulse Oximetry
Patient hypoxic: no
*Critical Care Note
Total Time (30-74mins, 75-104mins- exclusive of procedures): Not Applicable
ED Attending Note
-
Portions of this chart may have been created with voice recognition software.� Occasional wrong word or��sound alike� substitutions may have occurred due to the inherent limitations of voice recognition software.
Discharge Plan
Departure
Patient Disposition: Home (Routine Discharge)
Date of Disposition: 01/25/24
Time of Disposition: 19:36
Patient with high blood pressure during this ER visit?: No
Condition: Good
Covid-19: Not Applicable
Discharge Problem:
Deep vein thrombosis (DVT) of axillary vein of left upper extremity, Pneumonia
Instructions: Deep Vein Thrombosis (Blood Clots in the Legs) (DC), Community-Acquired Pneumonia, Adult (DC), Deep Vein Thrombosis (Blood Clots in the Arm) (DC)
Prescriptions:
New
amoxicillin-pot clavulanate 875-125 mg tablet
1 tab PO BID Qty: 14 0RF
azithromycin [Zithromax] 250 mg tablet
250 mg PO DAILY Qty: 4 0RF
Eliquis DVT-PE Treat 30D Start 5 mg (74 tabs) tablets,dose pack
See Rx Instructions .ROUTE .COMPLEX Qty: 74 0RF
Rx Instructions:
orally per package directions
No Action
acetaminophen 650 mg Tablet Extended Release
1,300 mg PO PRN PRN (Reason: PAIN) Qty: 0
carvedilol 6.25 MG tablet
6.25 mg PO Q12H
trazodone 50 MG tablet
50 mg PO HS
loperamide 2 mg Tablet
2 mg PO PRN PRN (Reason: diarrhea)
diphenhydramine HCl 25 mg Tablet
50 mg PO HS
lisinopril 20 mg Tablet
20 mg PO HS
Dextromethorphan Cough
1 unit PO PRN PRN (Reason: cough)
oxycodone 5 mg tablet
5 - 10 mg PO Q4HPRN PRN (Reason: moderate to severe pain) Qty: 16 0RF
Referrals:
Amadeo Hensley MD [Family Provider] - Tomorrow
Activity Restrictions/Additional Instructions:
Return to the emergency department immediately for any changes in/worsening of your symptoms.
Interventions
Interventions:
*Risk Screen - Suicide Last Done: 01/25/24 16:29
*General Assessment Last Done: 01/25/24 16:29
*Neglect/Abuse Screening Last Done: 01/25/24 16:29
*Nursing Disposition Last Done: 01/25/24 20:13
ED- Cardiac Assessment Last Done: 01/25/24 16:11
ED- Pulmonary Assessment Last Done: 01/25/24 16:11
ED-Peripheral Vascular Assessment Last Done: 01/25/24 16:11
ED-Skin Assessment Last Done: 01/25/24 16:11
Discharge Date and Time
Discharge Date/Time: 01/25/24 20:14
Print Language: DUTCH
== END 2024-01-25 20:14 | disposition home or self-care (01) ==
LOC: EMR 14:28
PROVIDERS: Nurse Practitioner; EMERGENCY PHYSICIAN Emergency Medicine; FAMILY PHYSICIAN Internal Medicine
DX: I82.622 Acute embolism and thrombosis of deep veins of left upper extremity (principal); J18.9 Pneumonia, unspecified organism; I10 Essential (primary) hypertension; N40.0 Benign prostatic hyperplasia without lower urinary tract symptoms; Z85.038 Personal history of other malignant neoplasm of large intestine; Z90.49 Acquired absence of other specified parts of digestive tract
CPT/HCPCS: 99284; 71275; 80053; 85025; 93971; Q9967

== ENCOUNTER → 2024-02-11 11:15 | Outpatient (REF) | payer MEDICARE, SELFPAY | LOC: HWRCS 11:15 | PROVIDERS: ATTENDING PHYSICIAN Internal Medicine Cardiovascular Disease; FAMILY PHYSICIAN Internal Medicine | DX: I44.7 Left bundle-branch block, unspecified (principal) | CPT/HCPCS: 93306 ==

== ENCOUNTER → 2024-03-18 13:34 | Outpatient (REF) | payer OTHER, SELFPAY | LOC: RAD 13:34 | PROVIDERS: ATTENDING PHYSICIAN Internal Medicine | DX: J18.9 Pneumonia, unspecified organism (principal) | CPT/HCPCS: 71046 ==

== ENCOUNTER → 2024-06-20 09:21 | Outpatient (REF) | payer OTHER, SELFPAY | LOC: RAD 09:21 | PROVIDERS: ATTENDING PHYSICIAN Internal Medicine | DX: Z86.718 Personal history of other venous thrombosis and embolism (principal); I42.8 Other cardiomyopathies; G47.62 Sleep related leg cramps; Z85.038 Personal history of other malignant neoplasm of large intestine; K52.9 Noninfective gastroenteritis and colitis, unspecified; G62.1 Alcoholic polyneuropathy | CPT/HCPCS: 93971 ==

== ENCOUNTER 2024-07-24 15:43 | Emergency (ER) | payer OTHER, SELFPAY ==
[2024-07-24 15:47] VITALS: BP 150/90
--- NOTE | 2024-07-24 20:20 | ED.GENMED ---
History of Present Illness
General
Chief Complaint: Eye Problems
Time Seen by Provider: 07/24/24 18:51
History of Present Illness
History of Present Illness:
78-year-old male presenting to the emergency department for bilateral eye irritation. Patient reports about 4 days ago he mowed his lawn and then his eyes were very itchy. He was rubbing his eyes and the itchiness worsened. Since then he has had
drainage to the eyes and reports some blurred vision. The blurred vision usually goes away after about 15 seconds, however today felt that it was more pronounced. Does take a daily allergy medication. He has been using allergy drops. He denies
fever. He denies direct injury to the eye. He denies additional acute medical complaints
Past History
Past History
ED Past Medical History: Arrthythmia (PVC's), HTN, Other (Large prostate) and Other (Hx colon cancer)
ED Past Surgical History: Orthopedic and Other (Colon resection 2007)
Social History
Tobacco: Non-smoker
Personal: Single
Living: alone
Phy Exam
Physical Exam
Physical Exam:
General: Well-appearing, no clinical signs of dehydration, nontoxic and in no acute distress
HEENT: protecting airway, extraocular movements intact, pupils equal and reactive. Mild swelling to bilateral upper eyelids. Yellowish-green drainage from bilateral eyes. Conjunctival erythema and irritation. On fluorescein staining, small
corneal abrasion to the right eye
Neck: appears supple
CV: Normal heart rate, regular rhythm, no evidence of cyanosis
Resp: No accessory muscle use
Abd: No distention
Extremities: No deformities, no swelling
Neuro: alert, no focal neurologic deficit
: deferred
Rectal: deferred
Psych: Normal affect
Skin: Intact
Course
Orders/Labs/Results
Orders:
Orders
07/24/24 20:18
Erythromycin (Ilotycin) [Erythromycin 0.5% Ophthalmic Ointment] See Dose Instructions OPHTH NOW STA
Vital Signs
Initial and Last Documented VS:
Initial Vital Signs
Temp Pulse Resp BP Pulse Ox
98.5 F 70 18 150/90 98
07/24/24 15:47 07/24/24 15:47 07/24/24 15:47 07/24/24 15:47 07/24/24 15:47
Last Documented Vital Signs
Temp Pulse Resp BP Pulse Ox
98.5 F 70 18 150/90 98
07/24/24 15:47 07/24/24 15:47 07/24/24 15:47 07/24/24 15:47 07/24/24 15:47
MDM/Problems Addressed
MDM/Problems Addressed:
78-year-old male presenting to the emergency department for bilateral eye irritation after mowing his lawn 4 days ago. Vital signs on arrival are significant for mild hypertension.
On exam, patient is resting comfortably, no acute distress or discomfort. Patient with bilateral conjunctival irritation and drainage. Suspected allergic conjunctivitis with possible bacterial component, greenish drainage to bilateral eyes.
Fluorescein staining completed, small corneal abrasion to the right eye. Patient denying any present blurred vision, however does increase blurred vision to the left eye in comparison to the right when staring at his computer prior to arrival.
Left eyelid is drooping over the left eye, which patient was not aware of until I had him look in the mirror. Suspect that this is likely contributing to the blurred vision in addition to the drainage. Without present concern for ocular
compromise. Will start patient on antibiotic eye ointment. Ultimately feel stable for discharge. Advised continued allergic eyedrops for irritation. Also advised calling the eye doctor tomorrow for appointment. Return precautions discussed
*Critical Care Note
Total Time (30-74mins, 75-104mins- exclusive of procedures): Not Applicable
ED Attending Note
-
Portions of this chart may have been created with voice recognition software.� Occasional wrong word or��sound alike� substitutions may have occurred due to the inherent limitations of voice recognition software.
Discharge Plan
Departure
Prescriptions:
No Action
acetaminophen 650 mg Tablet Extended Release
1,300 mg PO PRN PRN (Reason: PAIN) Qty: 0
carvedilol 6.25 MG tablet
6.25 mg PO Q12H
trazodone 50 MG tablet
50 mg PO HS
loperamide 2 mg Tablet
2 mg PO PRN PRN (Reason: diarrhea)
diphenhydramine HCl 25 mg Tablet
50 mg PO HS
lisinopril 20 mg Tablet
20 mg PO HS
Dextromethorphan Cough
1 unit PO PRN PRN (Reason: cough)
oxycodone 5 mg tablet
5 - 10 mg PO Q4HPRN PRN (Reason: moderate to severe pain) Qty: 16 0RF
amoxicillin-pot clavulanate 875-125 mg tablet
1 tab PO BID Qty: 14 0RF
azithromycin [Zithromax] 250 mg tablet
250 mg PO DAILY Qty: 4 0RF
Eliquis DVT-PE Treat 30D Start 5 mg (74 tabs) tablets,dose pack
See Rx Instructions .ROUTE .COMPLEX Qty: 74 0RF
Rx Instructions:
orally per package directions
Referrals:
Amadeo Hensley MD [Family Provider] -
Interventions
Interventions:
*Risk Screen - Suicide Last Done: 07/24/24 15:47
*General Assessment Last Done: 07/24/24 15:47
*Neglect/Abuse Screening Last Done: 07/24/24 15:47
*ED- Fall Risk Assessment Last Done: 07/24/24 15:47
*ED COVID-19 Vaccine History Last Done: 07/24/24 15:47
Discharge Date and Time
Print Language: YEMENI
[2024-07-24] MEDS: ERYTHROMYCIN 0.5% OPHTHALMIC OINTMENT 1 APPLIC OPHTH (20:44)
[2024-07-24 20:46] VITALS: BP 136/80
== END 2024-07-24 20:53 | disposition home or self-care (01) ==
LOC: EMR 15:43
PROVIDERS: EMERGENCY PHYSICIAN Student in an Organized Health Care Education/Training Program; FAMILY PHYSICIAN Internal Medicine
DX: H10.9 Unspecified conjunctivitis (principal); S05.01XA Injury of conjunctiva and corneal abrasion without foreign body, right eye, initial encounter; X58.XXXA Exposure to other specified factors, initial encounter; I49.3 Ventricular premature depolarization; I10 Essential (primary) hypertension; N40.0 Benign prostatic hyperplasia without lower urinary tract symptoms; Z85.038 Personal history of other malignant neoplasm of large intestine
CPT/HCPCS: 99282

== ENCOUNTER 2024-10-10 14:41 | Emergency (ER) | payer OTHER, SELFPAY ==
[2024-10-10 15:07] VITALS: BP 139/77
--- NOTE | 2024-10-10 17:16 | ED.GENMED ---
History of Present Illness
General
Chief Complaint: DVT/Possible Blood Clot
Source: patient
Exam Limitations: none
Time Seen by Provider: 10/10/24 17:12
History of Present Illness
History of Present Illness:
See MDM
Past History
Past History
ED Past Medical History: Arrthythmia (PVC's), HTN, Other (Large prostate) and Other (Hx colon cancer)
ED Past Surgical History: Orthopedic and Other (Colon resection 2007)
Social History
Tobacco: Non-smoker
Personal: Single
Living: alone
Phy Exam
Physical Exam
Physical Exam:
See MDM
Course
Orders/Labs/Results
Orders:
Orders
10/10/24 15:13
Legs, Right US [US Periph Venous LOWER Ext RT] Urgent
Comment:
Reason For Exam: r/o DVT
10/10/24 19:06
Apixaban [Eliquis] 10 mg PO ONCE ONE
Vital Signs
Initial and Last Documented VS:
Initial Vital Signs
Temp Pulse Resp BP Pulse Ox
97.5 F 70 18 139/77 98
10/10/24 15:07 10/10/24 15:07 10/10/24 15:07 10/10/24 15:07 10/10/24 15:07
Last Documented Vital Signs
Temp Pulse Resp BP Pulse Ox
97.5 F 70 18 139/77 98
10/10/24 15:07 10/10/24 15:07 10/10/24 15:07 10/10/24 15:07 10/10/24 17:20
MDM/Problems Addressed
Differential Diagnosis Includes:
Note:
CHIEF COMPLAINT(S)
Swelling behind the knee and in the calf.
HISTORY OF PRESENT ILLNESS
The patient is an 79-year-old male who reports noticing pain behind his knee approximately one week ago. The following day, the pain in the knee resolved, but he observed swelling and pain in the calf, which subsequently extended to his ankle, and
eventually leading to swelling in his foot. The patient reports discomfort, particularly when walking, due to the swelling. Upon examination, pitting edema was noted in the affected areas. The differential includes concerns for a possible blood
clot, hence the need for imaging to rule this out. There is suspicion of a Bakers cyst, described as a joint effusion potentially due to arthritic changes, which can lead to fluid accumulation and subsequent swelling.
PHYSICAL EXAM
General: Alert, no acute distress.
Skin: Warm, dry.
Head: Normocephalic, atraumatic
Neck: Appears supple, trachea midline.
Eyes, Ears, Nose, Mouth, and Throat: Oral mucosa moist.
Cardiovascular: No signs of cyanosis
Respiratory: Respirations are non-labored.
Abdomen: Non-distended
Musculoskeletal: No deformities. Mild pitting edema to both legs. Increased swelling of right leg compared to left leg. No acute skin changes. Distal extremity neurovascularly intact
Neurological: No focal neurological deficit observed.
Psychiatric: Cooperative, appropriate mood and affect.
PLAN
An ultrasound of the affected area will be conducted to evaluate for the presence of a blood clot. Considering the symptoms, the working diagnosis includes a Bakers cyst, for which time and conservative measures might suffice as treatment.
DIFFERENTIAL DIAGNOSIS
The Differential Diagnosis includes, in no particular order and is not limited to:
1. Deep Vein Thrombosis (DVT)
2. Bakers Cyst
3. Cellulitis
4. Lymphedema
5. Venous Insufficiency
6. Gout
7. Rheumatoid Arthritis
8. Heart Failure
9. Osteoarthritis
10. Popliteal Aneurysm
*Pulse Oximetry
SaO2: 98
Oxygen Mode of Delivery: Room air
Patient hypoxic: no
*Critical Care Note
Total Time (30-74mins, 75-104mins- exclusive of procedures): Not Applicable
ED Attending Note
-
Portions of this chart may have been created with voice recognition software.� Occasional wrong word or��sound alike� substitutions may have occurred due to the inherent limitations of voice recognition software.
Discharge Plan
Departure
Patient Disposition: Home (Routine Discharge)
Date of Disposition: 10/10/24
Time of Disposition: 19:07
Patient with high blood pressure during this ER visit?: No
Discharge Problem:
DVT (deep venous thrombosis)
Instructions: Deep Vein Thrombosis (Blood Clots in the Legs) (DC)
Prescriptions:
New
Eliquis 5 mg tablet
5 mg PO BID Qty: 74 0RF
Rx Instructions:
10 mg BID for the first 7 days
5 mg BID for days 8-30
No Action
acetaminophen 650 mg Tablet Extended Release
1,300 mg PO PRN PRN (Reason: PAIN) Qty: 0
carvedilol 6.25 MG tablet
6.25 mg PO Q12H
trazodone 50 MG tablet
50 mg PO HS
loperamide 2 mg Tablet
2 mg PO PRN PRN (Reason: diarrhea)
diphenhydramine HCl 25 mg Tablet
50 mg PO HS
lisinopril 20 mg Tablet
20 mg PO HS
Dextromethorphan Cough
1 unit PO PRN PRN (Reason: cough)
oxycodone 5 mg tablet
5 - 10 mg PO Q4HPRN PRN (Reason: moderate to severe pain) Qty: 16 0RF
amoxicillin-pot clavulanate 875-125 mg tablet
1 tab PO BID Qty: 14 0RF
azithromycin [Zithromax] 250 mg tablet
250 mg PO DAILY Qty: 4 0RF
Eliquis DVT-PE Treat 30D Start 5 mg (74 tabs) tablets,dose pack
See Rx Instructions .ROUTE .COMPLEX Qty: 74 0RF
Rx Instructions:
orally per package directions
erythromycin 5 mg/gram (0.5 %) ointment
0.5 inch BOTH EYES QID 5 Days Qty: 3.5 0RF
Referrals:
Amadeo Hensley MD [Family Provider, Internal Medicine]
Activity Restrictions/Additional Instructions:
Please return for any worsening symptoms.
You may return at any time if you have further concerns.
Please follow up with your doctor at the first available appointment, preferably this week.
Thank you for choosing [facility].
Interventions
Interventions:
*Risk Screen - Suicide Last Done: 10/10/24 15:10
*General Assessment Last Done: 10/10/24 15:10
*Neglect/Abuse Screening Last Done: 10/10/24 15:10
*ED COVID-19 Vaccine History Last Done: 10/10/24 15:10
ED- Cardiac Assessment Last Done: 10/10/24 17:10
ED- Pulmonary Assessment Last Done: 10/10/24 17:10
ED-Peripheral Vascular Assessment Last Done: 10/10/24 17:10
ED-Skin Assessment Last Done: 10/10/24 17:10
Discharge Date and Time
Print Language: ALBANIAN
[2024-10-10] MEDS: ELIQUIS 10 MG PO (19:12)
== END 2024-10-10 19:50 | disposition home or self-care (01) ==
LOC: EMR 14:41
PROVIDERS: EMERGENCY PHYSICIAN Student in an Organized Health Care Education/Training Program; FAMILY PHYSICIAN Internal Medicine
DX: I82.491 Acute embolism and thrombosis of other specified deep vein of right lower extremity (principal); I10 Essential (primary) hypertension
CPT/HCPCS: 99284; 93971

== ENCOUNTER → 2024-12-09 10:53 | Outpatient (REF) | payer OTHER, SELFPAY ==
[2024-12-09 12:05] LABS: Hematocrit 44.0 % (39.0-52.0); Hemoglobin 15.3 g/dL (13.0-18.0); Mean Corp Hgb Conc. 34.8 g/dL (33.0-37.0); Mean Corpuscular Volume 95.9 fL (80.0-94.0); Nucleated Red Blood Cells % 0 % (-); Platelet Count 186 10^3/uL (130-400); Red Cell Dist. Width 12.8 % (11.5-14.5)
[2024-12-09 12:21] LABS: Urine Character Clear (Clear)
[2024-12-09 12:37] LABS: ALT (SGPT) 14 U/L (0-50); AST (SGOT) 22 U/L (17-59); Albumin 4.0 g/dl (3.5-5.0); Alkaline Phosphatase 38 U/L (38-126); Blood Urea Nitrogen 17 mg/dl (9-20); Calcium 9.1 mg/dl (8.4-10.2); Carbon Dioxide 30 mmol/L (22-30); Chloride 103 mmol/L (98-107); Glucose 92 mg/dl (70-99); HDL Cholesterol 46 mg/dl; LDL Cholesterol, Calculated 59 mg/dl; Potassium 4.4 mmol/L (3.5-5.1); Sodium 137 mmol/L (135-145); Total Protein 6.5 g/dl (6.3-8.2); Very Low Density Lipoprotein 17 mg/dl (0-30)
[2024-12-09 12:47] LABS: eGFR > 60.00
[2024-12-09 13:01] LABS: Urine White Cell 0-2 /HPF (0-5)
[2024-12-09 13:04] LABS: PSA, Total - Screen 1.84 ng/ml (0.0-4.0)
== END ==
LOC: REG 10:53
PROVIDERS: ATTENDING PHYSICIAN Internal Medicine
DX: Z85.038 Personal history of other malignant neoplasm of large intestine (principal); I10 Essential (primary) hypertension
CPT/HCPCS: 36415; 80053; 80061; 81003; 81015; 85025; G0103

== ENCOUNTER → 2024-12-29 14:16 | Outpatient (REF) | payer OTHER, SELFPAY | LOC: RAD 14:16 | PROVIDERS: ATTENDING PHYSICIAN Chiropractor; FAMILY PHYSICIAN Internal Medicine | DX: M99.03 Segmental and somatic dysfunction of lumbar region (principal); M62.40 Contracture of muscle, unspecified site | CPT/HCPCS: 72110 ==

== ENCOUNTER → 2025-01-24 10:39 | Outpatient (REF) | payer OTHER, SELFPAY ==
[2025-01-24 11:24] LABS: D-Dimer 0.43 ug/mlFEU (0.00-0.50)
[2025-01-26 03:21] LABS: Beta-2-Glycoprotein I Ab. IgG <10 SGU (<=20); Beta-2-Glycoprotein I Ab. IgM <10 SMU (<=20)
== END ==
LOC: REG 10:39
PROVIDERS: ATTENDING PHYSICIAN Internal Medicine Hematology & Oncology
DX: I82.612 Acute embolism and thrombosis of superficial veins of left upper extremity (principal); I82.402 Acute embolism and thrombosis of unspecified deep veins of left lower extremity; Z86.711 Personal history of pulmonary embolism
CPT/HCPCS: 36415; 81240; 81241; 85379; 86146; 86147

== ENCOUNTER → 2025-02-07 11:37 | Outpatient (REF) | payer OTHER, SELFPAY | LOC: RAD 11:37 | PROVIDERS: ATTENDING PHYSICIAN Internal Medicine Hematology & Oncology; FAMILY PHYSICIAN Internal Medicine | DX: Z86.711 Personal history of pulmonary embolism (principal) | CPT/HCPCS: 93971 ==

== ENCOUNTER → 2025-02-10 15:28 | Outpatient (REF) | payer OTHER, SELFPAY ==
[2025-02-10 17:26] LABS: Hematocrit 45.5 % (39.0-52.0); Hemoglobin 15.9 g/dL (13.0-18.0); Mean Corp Hgb Conc. 34.9 g/dL (33.0-37.0); Mean Corpuscular Volume 98.9 fL (80.0-94.0); Nucleated Red Blood Cells % 0 % (-); Platelet Count 160 10^3/uL (130-400); Red Cell Dist. Width 13.2 % (11.5-14.5)
[2025-02-10 17:43] LABS: AST (SGOT) 25 U/L (17-59); Albumin 4.2 g/dl (3.5-5.0); Blood Urea Nitrogen 21 mg/dl (9-20); Carbon Dioxide 31 mmol/L (22-30); Chloride 101 mmol/L (98-107); Glucose 87 mg/dl (70-99); Total Protein 6.8 g/dl (6.3-8.2); eGFR > 60.00
[2025-02-10 17:51] LABS: ALT (SGPT) 16 U/L (0-50); Alkaline Phosphatase 39 U/L (38-126); Calcium 9.7 mg/dl (8.4-10.2); Iron 129 ug/dl (49-181); Potassium 4.4 mmol/L (3.5-5.1); Sodium 135 mmol/L (135-145)
[2025-02-10 17:53] LABS: Total Iron Binding Capacity 278 ug/dl (261-462)
[2025-02-10 18:13] LABS: CEA 0.97 ng/ml
[2025-02-10 18:18] LABS: Ferritin 138.0 ng/ml (17.9-464.0)
== END ==
LOC: RAD 15:28
PROVIDERS: ATTENDING PHYSICIAN Nurse Practitioner Adult Health
DX: I82.612 Acute embolism and thrombosis of superficial veins of left upper extremity (principal); I82.402 Acute embolism and thrombosis of unspecified deep veins of left lower extremity; Z86.711 Personal history of pulmonary embolism
CPT/HCPCS: 36415; 72100; 80053; 82378; 82728; 83540; 83550; 85025

== ENCOUNTER → 2025-02-11 11:18 | Outpatient (REF) | payer OTHER, SELFPAY | LOC: REG 11:18 | PROVIDERS: ATTENDING PHYSICIAN Nurse Practitioner Adult Health; FAMILY PHYSICIAN Internal Medicine | DX: I82.612 Acute embolism and thrombosis of superficial veins of left upper extremity (principal); I82.402 Acute embolism and thrombosis of unspecified deep veins of left lower extremity; Z86.711 Personal history of pulmonary embolism | CPT/HCPCS: 87045; 87046; 87324; 87328; 87329; 87427; 87449 ==

== ENCOUNTER 2025-02-28 06:30 | Day surgery (SDC) | payer OTHER, SELFPAY | END 2025-02-28 12:01 | disposition home or self-care (01) | LOC: GI 06:30 | PROVIDERS: ATTENDING PHYSICIAN Internal Medicine Gastroenterology; FAMILY PHYSICIAN Internal Medicine | DX: R19.4 Change in bowel habit (principal); K64.8 Other hemorrhoids; K57.30 Diverticulosis of large intestine without perforation or abscess without bleeding; R12 Heartburn; R13.10 Dysphagia, unspecified; K22.89 Other specified disease of esophagus; K26.9 Duodenal ulcer, unspecified as acute or chronic, without hemorrhage or perforation; K31.89 Other diseases of stomach and duodenum; D12.4 Benign neoplasm of descending colon; D12.5 Benign neoplasm of sigmoid colon; K22.70 Barrett's esophagus without dysplasia; Z85.038 Personal history of other malignant neoplasm of large intestine; Z98.0 Intestinal bypass and anastomosis status | CPT/HCPCS: 45385; 45381; 43239; 88305; 88342 ==